=== PATIENT | female | born 1940 | race Caucasian/White ===

== ENCOUNTER 2018-01-10 12:21 | Outpatient (CLI) | payer OTHER | END 2018-01-10 12:22 | disposition home or self-care (01) | LOC: NUCLEAR 12:21 | DX: M81.6 Localized osteoporosis [Lequesne] (principal) ==

== ENCOUNTER 2023-10-06 11:40 | Outpatient (CLI) | payer OTHER | END 2023-10-06 14:23 | disposition home or self-care (01) | LOC: RAD 11:40 | PROVIDERS: ATTEND Internal Medicine Gastroenterology | DX: R05.9 Cough, unspecified (principal); M54.14 Radiculopathy, thoracic region; M54.15 Radiculopathy, thoracolumbar region; M54.17 Radiculopathy, lumbosacral region ==